=== PATIENT | female | born 1990 | race Caucasian/White ===

== ENCOUNTER 2016-05-17 10:17 | Emergency (ER) | payer MEDICAID ==
[2016-05-17 10:35] VITALS: BP 116/69
--- NOTE | 2016-05-17 11:05 | EDM.PDOC ---
ED HPI Trauma - General Chief Complaint: Lower Extremity Injury/Pain Stated Complaint: L LEG INJURY/NUMBNESS Time Seen by Provider: 05/17/16 11:05 Source: Reports: Patient History Limitations: Reports: No limitations - History of Present Illness INITIAL COMMENTS - FREE TEXT/NARRATIVE: Patient presents for evaluation and treatment of a left leg injury. Patient reports that she worked all day yesterday. She states that she got home last night around 2300 and interventions. She states that she heard a pop in her left hip and then developed pain down into her left leg. She currently reports severe numbness and tingling to the lateral aspect of her leg. She reports pain to palpation of the left hip and movement. She reports that the worst pain is to the ventral left foot. She has been able to bear weight on it. She denies any urinary incontinence, stool incontinence, urinary retention, fevers, chills , nausea or vomiting. Patient reports that she works at a [employer]. She is on her feet for often eats 2 hours a day. She states that she is responding or shift. 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) Other OB/BYN History: tubal ligation Neurological History: Reports: Migraines Psychiatric History: Reports: Anxiety, Depression - Past Surgical History HEENT Surgical History: Reports: Tonsillectomy GI Surgical History: Reports: Cholecystectomy Social & Family History - Tobacco Use Smoking Status *Q: Current Every Day Smoker Years of Tobacco use: 11 Packs/Tins Daily: 0.2 - Caffeine Use Caffeine Use: Reports: Coffee - Recreational Drug Use Recreational Drug Use: No Review of Systems - Review of Systems Review Of Systems: See Below Constitutional: Denies: chills, fever GI/Abdominal: Denies: Nausea, Vomiting Musculoskeletal: Reports: leg pain (left). Denies: back pain Neurological: Reports: numbness, tingling, difficulty walking Trauma Exam - Physical Exam Exam: See Below Exam Limited By: No limitations General Appearance: Reports: alert, WD/WN, no apparent distress Neck: Reports: non-tender, full range of motion, normal alignment, normal inspection Respiratory Exam: Reports: no respiratory distress, lungs clear, normal breath sounds Cardiovascular: Reports: normal peripheral pulses, regular rate, rhythm, no murmur Back: Reports: normal inspection. Denies: paraspinal tenderness, vertebral tenderness Extremities: Reports: no evidence of injury, pain with movement, tenderness ( left iliac crest, left greater trochanter, left lateral femur, left lateral knee , left lateral ankle and left plantar faschia) Neurologic: Reports: alert, normal mood/affect, motor weakness (body former 5/5 right and 4.5/5 left; dorsiflexion 5/5 right and 4/5 left; plantar flexion 5/5 right and 4.5/5 left ), other (negative straight leg raise right; weakness/pain to left leg with left straight leg raise) Skin: Reports: Normal color, Warm/dry Course - Vital Signs Last Recorded V/S: Last Vital Signs Temp 36.3 C 05/17/16 10:30 Pulse 74 05/17/16 10:30 Resp 12 05/17/16 10:30 BP 116/69 05/17/16 10:30 Pulse Ox 99 05/17/16 10:30 - Orders/Labs/Meds Orders: Active Orders 24 hr Category Date Time Status Hip Min 2V or 3V w Pelvis Lt [CR] Stat Exams 05/17/16 11:05 Taken Lumbar Spine 2 or 3V [CR] Stat Exams 05/17/16 11:05 Taken Meds: Medications Discontinued Medications Generic Name Dose Route Start Last Admin Trade Name Freq PRN Reason Stop Dose Admin Ketorolac Tromethamine 60 mg 05/17/16 11:06 05/17/16 11:41 Toradol IM 05/17/16 11:07 60 mg ONETIME ONE Administration - Radiology Interpretation Free Text/Narrative:: Lumbar spine xrays shows no acute fractures or dislocations Left hip and pelvis xrays hows no acute fractures or dislocations. - Re-Assessments/Exams Free Text/Narrative Re-Assessment/Exam: 05/17/16 12:14 Reviewed xrays results with the patient. Patient reports to me that she is currently being worked up for MS. She seen a neurologist and is Trevon. She states that she has had an MRI of her brain which showed lesions in her brain. She has optic neuritis which caused blurry vision to the left eye. She states she is scheduled for an MRI for cervical spine in the next few weeks. Should she have lesions on her cervical spine this would confirm a diagnosis of MS. I feel that more likely her current symptoms are from something such as MS. We discussed treatment options. I will give her some steroids and some pain medication as needed for severe pain. Discharge instructions as documented. Departure - Departure Time of Disposition: 12:14 Disposition: Home, Self-Care 01 Condition: fair Clinical Impression: Left leg pain Prescriptions: Prednisone [IJD: predniSONE] 40 mg PO WITHBREAKFAST #10 tab traMADol [Ultram] 50 mg PO Q6H PRN #12 tablet PRN Reason: Pain Instructions: Fall Prevention in the Home, [id number] Referrals: Kavita Phillip MD [Primary Care Provider] - Forms: ED Department Discharge Additional Instructions: Take the prednisone 2 tablets or 40 mg daily for 5 days. Take [id number] ibuprofen for pain relief. May take the tramadol as needed for severe pain. One tab every 4-6 hours as needed for severe pain. Do not drive or operate machinery within 12 hours of taking the tramadol. Tramadol can be habit-forming, I recommend you take as few of these as needed to control your pain. Utilize ice or moist heat to help with pain and symptom relief. If her symptoms are not better by the end of next week, Followup with primary care provider. Continue with your current plan of care with your neurologist. Please return to the ER should your symptoms change or worsen. - My Orders Last 24 Hours: My Active Orders 05/17/16 11:05 Hip Min 2V or 3V w Pelvis Lt [CR] Stat Lumbar Spine 2 or 3V [CR] Stat - Assessment/Plan Last 24 Hours: My Active Orders 05/17/16 11:05 Hip Min 2V or 3V w Pelvis Lt [CR] Stat Lumbar Spine 2 or 3V [CR] Stat
[2016-05-17] MEDS ORDERED: Ketorolac 60 MG/2 ML SDV IM ONE (11:06)
--- NOTE | 2016-05-19 07:15 | CR ---
Lumbar spine: AP and lateral views of the lumbar spine were obtained. Comparison: No previous study. Calcifications are seen off the endplates anteriorly within L4 and L5 which are felt to be incidental. Minimal endplate osteophytes are also seen within both these levels. Vertebral body heights and disc spaces are maintained. Pedicles as well as transverse and spinous processes are intact. No subluxation or fracture is seen. Incidental surgical clips are seen from prior cholecystectomy. Impression: 1. Nothing acute seen on two-view lumbar spine exam. Other incidental findings as noted above. Diagnostic code #2
--- NOTE | 2016-05-19 08:05 | CR ---
Pelvis and left hip: AP view of the pelvis was obtained as well as AP and frog leg lateral views of both hips. Comparison: No previous study. Joint spaces within both hips are maintained. Sacroiliac joints are within normal limits. No fracture or other abnormality is seen. Impression: 1. No abnormality is seen on AP pelvis or on two-view left hip exam. Diagnostic code #1
== END 2016-05-17 12:30 | disposition home or self-care (01) ==
LOC: JD.ED 10:17
DX: M79.605 Pain in left leg (principal); F17.210 Nicotine dependence, cigarettes, uncomplicated; Z91.013 Allergy to seafood; Z90.89 Acquired absence of other organs; Z98.890 Other specified postprocedural states
CPT/HCPCS: 72100; 73502; 96372; 99283; J1885

== ENCOUNTER 2016-07-15 18:55 | Emergency (ER) | payer MEDICAID ==
[2016-07-15 19:32] VITALS: BP 123/80
--- NOTE | 2016-07-15 19:39 | EDM.PDOC ---
ED HPI GENERAL MEDICAL PROBLEM - General Chief Complaint: ENT Problem Stated Complaint: POSS SWOLLEN LYMPH NODES Time Seen by Provider: 07/15/16 19:39 - History of Present Illness INITIAL COMMENTS - FREE TEXT/NARRATIVE: 26-year-old female presents emergency room with a swelling under her right jaw. This is been present for the last 3 or 4 days. Has not been associated with fevers or chills. She's been thinking it's an enlarged lymph node. Patient denies any upper respiratory tract symptoms sore throat allergic rhinitis or other symptoms. 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 Denies: fever, chills HEENT: Reports: No symptoms Respiratory: Reports: No Symptoms Cardiovascular: Reports: No symptoms GI/Abdominal: Reports: No symptoms ED EXAM, ENT - Physical Exam Exam: See Below General Appearance: alert, no apparent distress Eye Exam: bilateral eye: normal inspection Ears: normal external exam, normal canal, hearing grossly normal, normal TMs Nose: normal inspection, normal mucousa, no blood Mouth/Throat: Normal inspection, Normal gums, Normal lips, Normal oropharynx, Normal teeth Head: atraumatic, normocephalic Neck: lymphadenopathy (R) (She has a massive follows the inner aspect of her lower jaw on the right feels more like an enlarged submandibular gland) Respiratory/Chest: no respiratory distress, lungs clear, normal breath sounds Cardiovascular: regular rate, rhythm, no edema, no murmur Course - Vital Signs Last Recorded V/S: Last Vital Signs Temp 36.6 C 07/15/16 19:29 Pulse 69 07/15/16 19:29 Resp 20 07/15/16 19:29 BP 123/80 07/15/16 19:29 Pulse Ox 98 07/15/16 19:29 - Re-Assessments/Exams Free Text/Narrative Re-Assessment/Exam: 07/15/16 19:58 It is possible that this is a lymph node albeit elongated shape in the location of the submandibular gland. I think more probable it's an inflamed submandibular gland. We'll start a week's worth of cephalexin 500 mg 4 times a day with close followup in the clinic. Departure - Departure Time of Disposition: 19:53 Disposition: Home, Self-Care 01 Clinical Impression: Sialadenitis - Discharge Information Prescriptions: Cephalexin [Keflex] 500 mg PO Q6HR #28 cap Referrals: PCP,Unknown [Primary Care Provider] - Forms: ED Department Discharge Additional Instructions: Return to emergency room if any questions or problems. Followup with Dr. Sloan next week. You have been started on any antibiotic, Keflex, take this 4 times daily until gone.
== END 2016-07-15 20:05 | disposition home or self-care (01) ==
LOC: JD.ED 18:55
DX: K11.20 Sialoadenitis, unspecified (principal); F41.8 Other specified anxiety disorders; F17.210 Nicotine dependence, cigarettes, uncomplicated; Z90.49 Acquired absence of other specified parts of digestive tract; Z98.890 Other specified postprocedural states; Z91.013 Allergy to seafood
CPT/HCPCS: 99283

== ENCOUNTER 2016-12-31 20:51 | Emergency (ER) | payer OTHER, MEDICAID ==
[2016-12-31 21:09] VITALS: BP 126/92
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
== END 2016-12-31 21:50 | disposition home or self-care (01) ==
LOC: JD.ED 20:51 → MERGE 20:51 → JD.ED 21:50
DX: T52.0X1A Toxic effect of petroleum products, accidental (unintentional), initial encounter (principal); Y92.524 Gas station as the place of occurrence of the external cause; Y99.0 Civilian activity done for income or pay; R10.13 Epigastric pain; Z91.013 Allergy to seafood
CPT/HCPCS: 99283

== ENCOUNTER 2017-04-05 11:23 | Emergency (ER) | payer MEDICAID, OTHER ==
[2017-04-05 11:53] VITALS: BP 122/77
--- NOTE | 2017-04-05 13:02 | EDM.PDOC ---
ED HPI GENERAL MEDICAL PROBLEM - General Chief Complaint: Respiratory Problem Stated Complaint: EXPOSED TO FLU Time Seen by Provider: 04/05/17 11:28 Source of Information: Reports: Patient, RN Notes Reviewed - History of Present Illness INITIAL COMMENTS - FREE TEXT/NARRATIVE: 27 year old female with onset of cough, nakul., sore throat, chills, Valenzuela, myalgias today. Strong exposure for the last 3 days to 7 year old girl living with her and her family diagnosed with influenza this morning having been ill with typical sx for the past few days. Hx of MS. 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) Other OB/BYN History: tubal ligation Musculoskeletal History: Reports: Other (See Below) Neurological History: Reports: Migraines, MS Psychiatric History: Reports: Anxiety, Depression - Infectious Disease History Infectious Disease History: Reports: Hepatitis C Other Infectious Disease History: pt has had the treatment for Hep c - Past Surgical History GI Surgical History: Reports: Cholecystectomy Female Surgical History: Reports: Tubal Ligation Social & Family History - Tobacco Use Smoking Status *Q: Current Every Day Smoker Years of Tobacco use: 12 Packs/Tins Daily: 0.5 - Caffeine Use Caffeine Use: Reports: Coffee - Recreational Drug Use Recreational Drug Use: No - Living Situation & Occupation Living situation: Reports: Single Occupation: Employed ED ROS GENERAL - Review of Systems Review Of Systems: See Below Constitutional: Reports: Chills, Malaise, Fatigue. Denies: Fever HEENT: Reports: Rhinitis, Throat Pain Respiratory: Reports: Cough. Denies: Shortness of Breath, Wheezing, Pleuritic Chest Pain Cardiovascular: Denies: Chest Pain GI/Abdominal: Denies: Abdominal Pain, Nausea, Vomiting Musculoskeletal: Reports: Other (generalized myalgias) Skin: Denies: Rash Neurological: Reports: Headache ED EXAM, GENERAL - Physical Exam Exam: See Below General Appearance: Alert, Mild Distress Eye Exam: Bilateral Eye: PERRL Nose: Normal Inspection Throat/Mouth: Normal Inspection, Normal Oropharynx Head: Atraumatic. No: Facial Swelling Neck: Supple, Full Range of Motion Respiratory/Chest: No Respiratory Distress, Lungs Clear, Normal Breath Sounds. No: Rhonchi, Wheezing Cardiovascular: Regular Rate, Rhythm Extremities: Normal Inspection, Normal Range of Motion Neurological: Alert, Oriented, No Motor/Sensory Deficits Skin Exam: Warm, Dry, Normal Color Course - Vital Signs Last Recorded V/S: Last Vital Signs Temp 97.6 F 04/05/17 11:52 Pulse 69 04/05/17 11:52 Resp 20 04/05/17 11:52 BP 122/77 04/05/17 11:52 Pulse Ox 97 04/05/17 11:52 - Re-Assessments/Exams Free Text/Narrative Re-Assessment/Exam: 04/05/17 13:24 will start on tamiflu bid due to very strong exposure and new onset sx typical for influenza. Departure - Departure Time of Disposition: 12:58 Disposition: Home, Self-Care 01 Clinical Impression: Influenza - Discharge Information Prescriptions: Oseltamivir [Tamiflu] 75 mg PO BID #10 cap Instructions: Influenza, Adult, [id number] Referrals: Kavita Phillip MD [Primary Care Provider] - Forms: ED Department Discharge, ED Return to Work/School Form Additional Instructions: rest, vaporizer or steam as needed, vitamin C or multivit. recomended. Alternate tylenol and ibuprofen as needed. Follow up clinic if not much better within 4 to 5 days, return to ED as needed.
== END 2017-04-05 13:15 | disposition home or self-care (01) ==
LOC: JD.ED 11:23
DX: J11.1 Influenza due to unidentified influenza virus with other respiratory manifestations (principal); F17.210 Nicotine dependence, cigarettes, uncomplicated; Z91.013 Allergy to seafood
CPT/HCPCS: 87804; 99283

== ENCOUNTER 2017-09-06 09:34 | Emergency (ER) | payer MEDICAID ==
--- NOTE | 2017-09-06 10:02 | EDM.PDOC ---
ED HPI GENERAL MEDICAL PROBLEM - General Chief Complaint: Abdominal Pain Stated Complaint: ABDOMINAL PAIN AND LEGS PAIN Time Seen by Provider: 09/06/17 10:01 Source of Information: Reports: Patient History Limitations: Reports: No Limitations - History of Present Illness INITIAL COMMENTS - FREE TEXT/NARRATIVE: 27-year-old female presents to the ED with a 3 day history of diffuse lower abdominal pain. She states it present is mostly right-sided and radiates up into her right flank. She gives no history of dysuria urgency or frequency earlier in the week. She's had fever and chills to the point of riders at nighttime for the last 3 nights. Very poor oral intake the last 3 days. She states bowels are still formed up and normal. Having a bowel movement makes the pain worse. She's had previous fallopian tubes resected she does not believe she could be . She's had her gallbladder removed in the past. Denies cough or sputum production. He states it does hurt to walk. Hurts to cough or deep breathe as well. Current temperature is 102.3. She is writhing on the bed as if she is having renal colic. Onset: Gradual Onset Date: 09/03/17 Duration: Day(s): (Symptoms started 3 days ago with fever and chills.), Getting Worse ( It sided abdominal pain which is gradually worsened over that timeframe. ) Location: Reports: Abdomen Quality: Reports: Ache (Right hemiabdomen radiating to the right flank and lower back.), Other (Describes the pain is constant with no colicky component.) Severity: Severe (Pain is 8 out of 10.) Improves with: Reports: Rest Worsens with: Reports: Movement Context: Denies: Activity (Any movement deep breathing coughing makes the pain worse.), Exercise, Lifting, Sick Contact, Trauma, Other Associated Symptoms: Reports: Diaphoresis (With rigors the last 3 nights), Fever /Chills, Loss of Appetite, Malaise, Nausea/Vomiting ( diaphoresis associate with the fevers during the night.). 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: Reports: Other (see below) (None.) Lower Abdominal Pain Score (Numeric/FACES): 10 - Related Data Allergies Allergy/AdvReac Type Severity Reaction Status Date / Time shellfish derived Allergy Airway Verified 09/06/17 10:01 Tightness Home Meds: Home Meds Interferon Beta-1a [Avonex] 1 applic INJECT WEEKLY 04/05/17 [History] Levofloxacin [Levaquin] 500 mg PO DAILY #9 tab 09/06/17 [Rx] Past Medical History HEENT History: Reports: Impaired Vision, Other (See Below) Other HEENT History: 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 Gastrointestinal History: Reports: Cholelithiasis 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 (See Below) Other ROLL SLICING MACHINE TENDER History: tubal ligation Musculoskeletal History: Reports: Other (See Below) Other Musculoskeletal History: MS Neurological History: Reports: Migraines, MS Psychiatric History: Reports: Anxiety, Depression - Infectious Disease History Infectious Disease History: Reports: Hepatitis C Other Infectious Disease History: pt has had the treatment for Hep c - Past Surgical History GI Surgical History: Reports: Cholecystectomy Female Surgical History: Reports: Tubal Ligation Social & Family History - Tobacco Use Smoking Status *Q: Current Every Day Smoker Years of Tobacco use: 10 Packs/Tins Daily: 0.5 - Caffeine Use Caffeine Use: Reports: Energy Drinks - Recreational Drug Use Recreational Drug Use: No - Living Situation & Occupation Living situation: Reports: Single Occupation: Employed ED ROS GENERAL - Review of Systems Review Of Systems: See Below Constitutional: Reports: Fever, Chills, Malaise, Weakness, Fatigue, Decreased Appetite, Weight Loss HEENT: Reports: No Symptoms Respiratory: Reports: No Symptoms Cardiovascular: Reports: No Symptoms Endocrine: Reports: No Symptoms GI/Abdominal: Reports: Abdominal Pain, Decreased Appetite, Nausea. Denies: Constipation (See history of present illness), Diarrhea, Difficulty Swallowing, Distension, Flatus, Hematemesis, Melena, Mucous in Stool, Stool Incontinence, Vomiting : Denies: Dysuria, Frequency, Urgency Musculoskeletal: Reports: Back Pain (Diffuse back pain mostly in the flank low at) Skin: Reports: No Symptoms Neurological: Reports: No Symptoms Psychiatric: Reports: No Symptoms Hematologic/Lymphatic: Reports: No Symptoms Immunologic: Reports: No Symptoms ED EXAM, GI/ABD - Physical Exam Exam: See Below Exam Limited By: No Limitations General Appearance: Alert, WD/WN, Moderate Distress Eyes: Bilateral: Normal Appearance Throat/Mouth: Normal Inspection, Normal Lips, Normal Teeth, Normal Oropharynx Head: Atraumatic, Normocephalic Neck: Normal Inspection, Supple, Non-Tender, Full Range of Motion. No: Lymphadenopathy (L), Lymphadenopathy (R) Respiratory/Chest: No Respiratory Distress, Lungs Clear, Normal Breath Sounds, No Accessory Muscle Use Cardiovascular: Normal Peripheral Pulses, Regular Rate, Rhythm, No Edema, No Gallop, No Murmur, Tachycardia GI/Abdominal Exam: Guarding ( Could not spread particularly say that McBurney's point was a source of peritonitis. Deep pressure or palpation did cause some mild rebound. amiodarone superiorly. ), Tender (Tenderness with guarding right hemiabdomen particularly at lateral to the umbilicus and superiorly.), Abnormal Bowel Sounds (Bowel sounds are very few and far between.) Back Exam: Normal Inspection, Full Range of Motion, CVA Tenderness (R). No: CVA Tenderness (L), Decreased Range of Motion (Mild), Muscle Spasm Extremities: Normal Inspection, Normal Range of Motion, Non-Tender, No Pedal Edema Neurological: Alert, Oriented, CN II-XII Intact, Normal Cognition, Normal Gait Psychiatric: Other. No: Normal Mood (Appears ill.) Skin Exam: Warm, Dry, Intact, Normal Color, No Rash (Does feel quite warm to palpation) Course - Vital Signs Last Recorded V/S: Last Vital Signs Temp 37.2 C 09/06/17 16:15 Pulse 105 H 09/06/17 16:15 Resp 16 09/06/17 16:15 BP 106/58 L 09/06/17 16:15 Pulse Ox 100 09/06/17 16:15 - Orders/Labs/Meds Orders: Active Orders 24 hr Category Date Time Status Abdomen 1V Flat [CR] Stat Exams 09/06/17 10:07 Taken Abdomen Pelvis w Cont [CT] Stat Exams 09/06/17 11:30 Taken Chest 1V Frontal [CR] Stat Exams 09/06/17 10:07 Taken CULTURE BLOOD [BC] Stat Lab 09/06/17 10:36 Received CULTURE BLOOD [BC] Stat Lab 09/06/17 10:44 Received CULTURE URINE [RM] Stat Lab 09/06/17 13:50 Received UA W/MICROSCOPIC [URIN] Stat Lab 09/06/17 13:50 Ordered Dextrose 5%-0.9% NaCl [Dextrose 5%-Normal Saline] 1,000 Med 09/06/17 10:15 Active ml IV ASDIRECTED Dextrose 5%-0.9% NaCl [Dextrose 5%-Normal Saline] 1,000 Med 09/06/17 12:00 Active ml IV ASDIRECTED Ketorolac [Toradol] Med 09/06/17 14:30 Active 30 mg IVPUSH ONETIME Blood Culture x2 Reflex Set [OM.PC] Stat Oth 09/06/17 10:08 Ordered Medication Orders Dextrose/Sodium Chloride (Dextrose 5%-Normal Saline) 1,000 mls @ 999 mls/hr IV ASDIRECTED NANCY Last Infusion: 09/06/17 11:15 Dose: 999 mls/hr Admin: 09/06/17 10:14 Dose: 999 mls/hr Dextrose/Sodium Chloride (Dextrose 5%-Normal Saline) 1,000 mls @ 999 mls/hr IV ASDIRECTED NANCY Last Admin: 09/06/17 12:03 Dose: 999 mls/hr Ketorolac Tromethamine (Toradol) 30 mg IVPUSH ONETIME NANCY Last Admin: 09/06/17 14:40 Dose: 30 mg Labs: Laboratory Tests 09/06/17 09/06/17 09/06/17 Range/Units 10:36 10:36 10:36 WBC 8.01 (3.98-10.04) K/mm3 RBC 4.00 (3.98-5.22) M/mm3 Hgb 11.9 (11.2-15.7) gm/L Hct 35.8 (34.1-44.9) % MCV 89.5 (79.4-94.8) fl MCH 29.8 (25.6-32.2) pg MCHC 33.2 (32.2-35.5) g/dl RDW Std Deviation 41.9 (36.4-46.3) fL Plt Count 182 (182-369) K/mm3 MPV 10.3 (9.4-12.3) fl Neutrophils % (Manual) 75 H (40-60) % Band Neutrophils % 0 (0-10) % Lymphocytes % (Manual) 15 L (20-40) % Monocytes % (Manual) 9 (2-10) % Eosinophils % (Manual) 1 (0.7-5.8) % Basophils % (Manual) 0 L (0.1-1.2) Platelet Estimate Adequate RBC Morph Comment Normal Sodium 136 (136-145) mEq/L Potassium 3.4 L (3.5-5.1) mEq/L Chloride 103 (98-107) mEq/L Carbon Dioxide 25 (21-32) mEq/L Anion Gap 11.4 (5-15) BUN 12 (7-18) mg/dL Creatinine 1.0 (0.55-1.02) mg/dL Est Cr Clr Drug Dosing 72.32 mL/min Estimated GFR (MDRD) > 60 (>60) mL/min BUN/Creatinine Ratio 12.0 L (14-18) Glucose 148 H (74-106) mg/dL Calcium 8.2 L (8.5-10.1) mg/dL Total Bilirubin 0.3 (0.2-1.0) mg/dL AST 13 L (15-37) U/L ALT 18 (14-59) U/L Alkaline Phosphatase 66 (46-116) U/L C-Reactive Protein 23.1 H* (<1.0) mg/dL Total Protein 6.6 (6.4-8.2) g/dl Albumin 2.8 L (3.4-5.0) g/dl Globulin 3.8 gm/dL Albumin/Globulin Ratio 0.7 L (1-2) Lipase (73-393) U/L HCG, Qual Negative (NEGATIVE) Urine Color (Yellow) Urine Appearance (Clear) Urine pH (5.0-8.0) Ur Specific [place] (1.005-1.030) Urine Protein (Negative) Urine Glucose (UA) (Negative) Urine Ketones (Negative) Urine Occult Blood (Negative) Urine Nitrite (Negative) Urine Bilirubin (Negative) Urine Urobilinogen (0.2-1.0) Ur Leukocyte Esterase (Negative) Urine RBC (0-5) /hpf Urine WBC (0-5) /hpf Ur Epithelial Cells (0-5) /hpf Urine Bacteria (FEW) /hpf Urine Mucus (FEW) /hpf 09/06/17 09/06/17 Range/Units 10:36 13:50 WBC (3.98-10.04) K/mm3 RBC (3.98-5.22) M/mm3 Hgb (11.2-15.7) gm/L Hct (34.1-44.9) % MCV (79.4-94.8) fl MCH (25.6-32.2) pg MCHC (32.2-35.5) g/dl RDW Std Deviation (36.4-46.3) fL Plt Count (182-369) K/mm3 MPV (9.4-12.3) fl Neutrophils % (Manual) (40-60) % Band Neutrophils % (0-10) % Lymphocytes % (Manual) (20-40) % Monocytes % (Manual) (2-10) % Eosinophils % (Manual) (0.7-5.8) % Basophils % (Manual) (0.1-1.2) Platelet Estimate RBC Morph Comment Sodium (136-145) mEq/L Potassium (3.5-5.1) mEq/L Chloride (98-107) mEq/L Carbon Dioxide (21-32) mEq/L Anion Gap (5-15) BUN (7-18) mg/dL Creatinine (0.55-1.02) mg/dL Est Cr Clr Drug Dosing mL/min Estimated GFR (MDRD) (>60) mL/min BUN/Creatinine Ratio (14-18) Glucose (74-106) mg/dL Calcium (8.5-10.1) mg/dL Total Bilirubin (0.2-1.0) mg/dL AST (15-37) U/L ALT (14-59) U/L Alkaline Phosphatase (46-116) U/L C-Reactive Protein (<1.0) mg/dL Total Protein (6.4-8.2) g/dl Albumin (3.4-5.0) g/dl Globulin gm/dL Albumin/Globulin Ratio (1-2) Lipase 81 (73-393) U/L HCG, Qual (NEGATIVE) Urine Color Yellow (Yellow) Urine Appearance Cloudy H (Clear) Urine pH 6.0 (5.0-8.0) Ur Specific [place] 1.010 (1.005-1.030) Urine Protein 1+ H (Negative) Urine Glucose (UA) Negative (Negative) Urine Ketones Negative (Negative) Urine Occult Blood 1+ H (Negative) Urine Nitrite Positive H (Negative) Urine Bilirubin Negative (Negative) Urine Urobilinogen 0.2 (0.2-1.0) Ur Leukocyte Esterase 2+ H (Negative) Urine RBC 5-10 H (0-5) /hpf Urine WBC 50-75 H (0-5) /hpf Ur Epithelial Cells 5-10 H (0-5) /hpf Urine Bacteria Many H (FEW) /hpf Urine Mucus Few (FEW) /hpf Meds: Medications Generic Name Dose Route Start Last Admin Trade Name Vikas PRN Reason Stop Dose Admin Dextrose/Sodium Chloride 1,000 mls @ 999 mls/hr 09/06/17 10:15 09/06/17 11:15 Dextrose 5%-Normal Saline IV Infused ASDIRECTED NANCY Infusion Dextrose/Sodium Chloride 1,000 mls @ 999 mls/hr 09/06/17 12:00 09/06/17 12:03 Dextrose 5%-Normal Saline IV 999 mls/hr ASDIRECTED NANCY Administration Ketorolac Tromethamine 30 mg 09/06/17 14:30 09/06/17 14:40 Toradol IVPUSH 30 mg ONETIME NANCY Administration Discontinued Medications Generic Name Dose Route Start Last Admin Trade Name Vikas PRN Reason Stop Dose Admin Acetaminophen 975 mg 09/06/17 10:12 09/06/17 10:24 Tylenol PO 09/06/17 10:13 975 mg NOW ONE Administration Diatrizoate Meglum/Diatrizoate Sod 90 ml 09/06/17 13:03 09/06/17 13:18 Gastrografin 37% PO 09/06/17 13:04 90 ml ONETIME ONE Administration Hydromorphone HCl 1 mg 09/06/17 10:08 09/06/17 10:21 Dilaudid IVPUSH 09/06/17 10:09 1 mg ONETIME ONE Administration Hydromorphone HCl 0.5 mg 09/06/17 11:29 09/06/17 11:49 Dilaudid IVPUSH 09/06/17 11:30 0.5 mg ONETIME ONE Administration Hydromorphone HCl 0.5 mg 09/06/17 13:31 09/06/17 13:43 Dilaudid IVPUSH 09/06/17 13:32 0.5 mg ONETIME ONE Administration Ceftriaxone Sodium 2 gm/ 100 mls @ 100 mls/hr 09/06/17 14:30 09/06/17 14:44 Sodium Chloride IV 09/06/17 15:29 100 mls/hr ONETIME ONE Administration Iopamidol 100 ml 09/06/17 13:03 09/06/17 13:18 Isovue-300 (61%) IVPUSH 09/06/17 13:04 100 ml ONETIME ONE Administration Levofloxacin 500 mg 09/06/17 16:00 09/06/17 16:15 Levaquin PO 09/06/17 16:01 500 mg ONETIME ONE Administration Metoclopramide HCl 7.5 mg 09/06/17 10:20 09/06/17 10:27 Reglan IVPUSH 09/06/17 10:21 7.5 mg ONETIME ONE Administration Sodium Chloride 10 ml 09/06/17 13:03 09/06/17 13:18 Saline Flush FLUSH 09/06/17 13:04 10 ml ONETIME ONE Administration - Radiology Interpretation Free Text/Narrative:: 27-year-old female presents to the ED with a history of fever chills 3 days. Diffuse right mckenzie-abdominal pain rating up towards her right flank. She is writhing on the bed and acting like renal colic. She would have to associated pyelonephritis to cause this type of fever. Temperatures 102.3 by nurses recording. She is guarding on the right side. Therefore appendicitis remains in the differential diagnosis. She has had a previous cholecystectomy he denies any dysuria urgency or frequency. Bowel function is normal. She's had both both fallopian tubes removed in the past. Plan IV D5 normal saline at open. Dilaudid 1 mg IV with Reglan 7.5 mg IV for pain relief. In 15 minutes or so after the Reglan is been administered will give her Tylenol 975 mg with a sip of water. Plan will be initial lab work urinalysis when one becomes available one view of the abdomen. Will likely require CT of the abdomen. - Re-Assessments/Exams Free Text/Narrative Re-Assessment/Exam: 09/06/17 11:21 KUB reveals increased stool throughout the transverse colon but no signs of any bowel obstruction. 09/06/17 11:31 patient reports her pain is coming back after the x-ray was completed. I will give her another 0.5 mg of Dilaudid IV. She believes she keep down oral contrast therefore will start oral contrast in preparation for CT the abdomen and pelvis with oral and IV contrast. 09/06/17 11:55 nurses report temperature is going up it's currently 103. CRP is returned elevated at 23.1. 09/06/17 13:32 patient's pain is coming back after CT has been completed. Will repeat Dilaudid 0.[address] reveals no hydronephrosis. The right ureter appears to be mildly dilated all the way down to the urinary bladder but there is no obstruction or stone within the ureter. No stones within either kidney tissue appreciated. There appears to be evidence of periappendiceal infiltrate compatible with appendicitis. The right ovary is easily visualized and appears to be intact and normal with a full single cyst. I cannot visualize the left ovary. There is no free fluid in the pelvis. 09/06/17 14:31 CT of the abdomen is reported as suspicious for right pyelonephritis due to a heterogenous right nephrogram. The right ureter is also mildly dilated without any sign of obstruction. Appendix is felt to be seen and is normal. Plan Toradol 30 g IV for further pain relief. Will be given Rocephin 2 g IV for UTI. Departure - Departure Time of Disposition: 16:00 Disposition: Home, Self-Care 01 Condition: Fair Clinical Impression: Pyelonephritis - Discharge Information Prescriptions: Levofloxacin [Levaquin] 500 mg PO DAILY #9 tab Instructions: Pyelonephritis, Adult, [id number] Referrals: PCP,None [Primary Care Provider] - Forms: ED Department Discharge, ED Return to Work/School Form Additional Instructions: Evaluation the emergency room today in regards to onset of high fever with associated chills 3 days. Diffuse right-sided abdominal pain mostly upper and lateral to the umbilicus her bellybutton. Fencing evidence of appendicitis October this remained in the differential diagnosis. Callus found to be within normal limits however markers for infection were found to be markedly elevated with CRP of 23.1 with normal being 1. Urinalysis finally prove the diagnosis as there is significant infection in the urine. CT the abdomen also confirmed evidence of right-sided kidney infection or pyelonephritis. He received intravenous fluids to rehydrate you. He received pain medications and Toradol and Tylenol for fever and pain relief. Treatment at home is Motrin 600 mg every 6 hours as needed for fever and/or pain relief. Initial dose of antibiotic was started in the ED with Rocephin 2 g given intravenously and first course of oral Levaquin 500 mg by mouth at the time of discharge. He will need to take Levaquin once daily 500 mg for another 9 days starting tomorrow at suppertime. Expect marked improvement over the next 48-72 hours. Note given to excuse her from work for the next 3 days including today. May also use Tylenol 650 mg every 4 hours if needed for fever relief. Return to the ED if vomiting occurs in your not able to keep down her medications. - My Orders Last 24 Hours: My Active Orders 09/06/17 10:07 Abdomen 1V Flat [CR] Stat Chest 1V Frontal [CR] Stat 09/06/17 10:08 Blood Culture x2 Reflex Set [OM.PC] Stat 09/06/17 10:15 Dextrose 5%-0.9% NaCl [Dextrose 5%-Normal Saline] 1,000 ml IV ASDIRECTED 09/06/17 10:36 CULTURE BLOOD [BC] Stat 09/06/17 10:44 CULTURE BLOOD [BC] Stat 09/06/17 11:30 Abdomen Pelvis w Cont [CT] Stat 09/06/17 12:00 Dextrose 5%-0.9% NaCl [Dextrose 5%-Normal Saline] 1,000 ml IV ASDIRECTED 09/06/17 13:50 CULTURE URINE [RM] Stat UA W/MICROSCOPIC [URIN] Stat 09/06/17 14:30 Ketorolac [Toradol] 30 mg IVPUSH ONETIME - Assessment/Plan Last 24 Hours: My Active Orders 09/06/17 10:07 Abdomen 1V Flat [CR] Stat Chest 1V Frontal [CR] Stat 09/06/17 10:08 Blood Culture x2 Reflex Set [OM.PC] Stat 09/06/17 10:15 Dextrose 5%-0.9% NaCl [Dextrose 5%-Normal Saline] 1,000 ml IV ASDIRECTED 09/06/17 10:36 CULTURE BLOOD [BC] Stat 09/06/17 10:44 CULTURE BLOOD [BC] Stat 09/06/17 11:30 Abdomen Pelvis w Cont [CT] Stat 09/06/17 12:00 Dextrose 5%-0.9% NaCl [Dextrose 5%-Normal Saline] 1,000 ml IV ASDIRECTED 09/06/17 13:50 CULTURE URINE [RM] Stat UA W/MICROSCOPIC [URIN] Stat 09/06/17 14:30 Ketorolac [Toradol] 30 mg IVPUSH ONETIME
[2017-09-06] MEDS ORDERED: HYDROmorphone 0.5 MG/0.5 ML SYRINGE IVPUSH ONE ×3 (10:08→13:31)
[2017-09-06] MEDS ORDERED: Acetaminophen 325 MG Tab PO ONE (10:12)
[2017-09-06] MEDS: Dextrose 5%-0.9% NaCl 1,000 ML IV SCH ×2 (10:14→12:03)
[2017-09-06] MEDS ORDERED: Metoclopramide 10 MG/2 ML SDV IVPUSH ONE (10:20)
[2017-09-06] MEDS ORDERED: Dextrose 5%-0.9% NaCl 1,000 ML IV SCH (12:00)
[2017-09-06] MEDS ORDERED: Diatrizoate Meglumine/Diatrizoate Sodium 37% 120 ML Bottle PO ONE (13:03)
[2017-09-06] MEDS ORDERED: Sodium Chloride 0.9% 10 ML Syringe FLUSH ONE (13:03)
[2017-09-06] MEDS ORDERED: Iopamidol 612 MG/ML 100 ML Bottle IVPUSH ONE (13:03)
[2017-09-06] MEDS ORDERED: Ketorolac 30 MG/ML SDV IVPUSH SCH (14:30)
[2017-09-06] MEDS ORDERED: cefTRIAXone 2 GM in Sodium Chloride 0.9% 100 ML IV ONE (14:30)
[2017-09-06] MEDS ORDERED: Levofloxacin 250 MG Tab PO ONE (16:00)
[2017-09-06 16:18] VITALS: BP 106/58
--- NOTE | 2017-09-07 07:27 | CT ---
CT abdomen and pelvis Technique: Multiple axial sections were obtained from above the dome of the diaphragm inferiorly through the pubic symphysis. Intravenous and oral contrast was utilized. Delayed images were also obtained through the bladder. Comparison: No prior CT exam. Findings: Slight areas of diminished perfusion are seen within portions of the right kidney. This finding is suspicious for pyelonephritis. No hydronephrosis or mass is seen within either kidney. Ureters show no dilatation. Visualized lung bases show nothing acute. Liver shows no focal parenchymal abnormality. Spleen appears within normal limits. Surgical clips are seen from prior cholecystectomy. Adrenal glands are unremarkable. Pancreas appears normal. Aorta shows no aneurysmal dilatation. No retroperitoneal adenopathy or mesenteric abnormalities are seen. Appendix is seen which is normal in size. Physiologic cyst is noted within the right ovary. No pelvic mass or adenopathy is seen. Delayed images show contrast within the distal ureters and within the bladder. Bone window settings were reviewed which show limbus type vertebra as an incidental note off the superior and anterior endplate of L4 and L5 as well as off the inferior and anterior endplate of L5. Impression: 1. Findings suspicious for pyelonephritis within the right kidney. 2. Other incidental findings as noted above. Diagnostic code #3 I agree with preliminary report from [facility], finalized at 09/06/17, 3:27 PM Central Time
--- NOTE | 2017-09-07 07:27 | CR ---
Abdomen: Supine view of the abdomen was obtained. Comparison: No prior abdominal imaging. Bowel gas pattern appears within normal limits. No abnormal calcifications or soft tissue abnormality is identified. Surgical clips are seen from prior cholecystectomy. Bony structures are within normal limits. Impression: 1. Nothing acute is seen. Diagnostic code #2
--- NOTE | 2017-09-07 07:27 | CR ---
Chest: Frontal view of the chest was obtained. Comparison: No prior chest x-ray. Heart size and mediastinum are normal. Lungs are clear. Bony structures are intact. Impression: 1. Nothing acute is seen on frontal chest x-ray. Diagnostic code #1
== END 2017-09-06 16:30 | disposition home or self-care (01) ==
LOC: JD.ED 09:34
DX: N12 Tubulo-interstitial nephritis, not specified as acute or chronic (principal); F17.210 Nicotine dependence, cigarettes, uncomplicated; Z91.013 Allergy to seafood
CPT/HCPCS: 36415; 71045; 74018; 74177; 80053; 81001; 83690; 84703; 85007; 85027; 86140; 87040; 87086; 96361; 96365; 96375; 96376; 99285; A9270; J0696; J1170; J1885; J2765; J7030; J7042; J7050; Q9963; Q9967; 87088; 87186

== ENCOUNTER 2017-10-27 19:16 | Emergency (ER) | payer MEDICAID ==
[2017-10-27 19:25] VITALS: BP 133/95
--- NOTE | 2017-10-27 19:44 | EDM.PDOC ---
ED HPI GENERAL MEDICAL PROBLEM - General Chief Complaint: General Stated Complaint: MEDICAL CLEARANCE FOR [facility] Time Seen by Provider: 10/27/17 19:26 Source of Information: Reports: Patient History Limitations: Reports: No Limitations - History of Present Illness INITIAL COMMENTS - FREE TEXT/NARRATIVE: The patient states that she is here for medical clearance to go to [facility]. She states that she has a history of methamphetamine abuse, currently in day treatment with [facility] at [facility], and that she does not want to relapse. She states that she last smoked methamphetamine on 10/09/2017. She states that she typically smokes 1 g per week. She denies any other recreational drugs, other than trying marijuana in high school, and a single injection of heroin when she was 20 years old. She states that she quit drinking alcohol in 2015, but only occasionally drank to excess. Medical records from this ED from 10/16/2017 tells a similar, but slightly different story. At that ED visit, she indicated that her last methamphetamine use was on 10/12/2017, and that she ordinarily smokes half a gram a day = 3.5 g per week. The patient has no prior history of inpatient drug treatment, no hospitalization secondary to drug use, and no legal consequences of drug use. Similarly, the patient has no medical or legal issues with alcohol. The patient states that she has a history of anxiety and depression, currently being treated with Cymbalta and Klonopin, and that she has been feeling depressed for the past 2 months, worst since she quit methamphetamine earlier this month, however, she states that she does not feel suicidal. She has 1 prior suicide attempt by pill overdose at 16 years of age. She did not require psychiatric hospitalization at the time, and states that she has never been psychiatrically hospitalized. No recent illnesses. The patient states that she has a history of MS, ordinarily treated with weekly injectable Avonex, however, she states that she has allowed her prescription to relapse, and last took it about one month ago. The patient's PCP is Aure Cochran. The patient's Neurologist is Dr. Pino, in [place]. - Related Data Allergies Allergy/AdvReac Type Severity Reaction Status Date / Time shellfish derived Allergy Airway Verified 10/27/17 19:25 Tightness Home Meds: Home Meds ClonazePAM [KlonoPIN] 0.5 mg PO BID PRN 10/16/17 [History] DULoxetine [Cymbalta] 120 mg PO DAILY 10/16/17 [History] Past Medical History HEENT History: Reports: Impaired Vision (left eye) Neurological History: Reports: MS Psychiatric History: Reports: Addiction (methamphetamine), Anxiety, Depression - Infectious Disease History Infectious Disease History: Reports: Hepatitis C (treated) - Past Surgical History HEENT Surgical History: Reports: Tonsillectomy GI Surgical History: Reports: Cholecystectomy Female Surgical History: Reports: Tubal Ligation Social & Family History - Family History Family Medical History: Noncontributory - Tobacco Use Smoking Status *Q: Current Every Day Smoker Years of Tobacco use: 12 Packs/Tins Daily: 0.5 Packs/Tins Daily Comment: Down from 1.5 ppd - Caffeine Use Caffeine Use: Reports: Coffee, Energy Drinks, Soda, Tea - Alcohol Use Alcohol Use History: Yes Date/Time of Last Drink Comment: Quit drinking 2015, prior occasional excess - Recreational Drug Use Recreational Drug Use: Yes Drug Use in Last 12 Months: Yes Recreational Drug Type: Reports: Heroin (Injected once at 16 years old), Marijuana/Hashish (Last smoked in HS), Methamphetamine (last smoked 10/09/2017) - Living Situation & Occupation Living situation: Reports: Single, with Significant Other (Fiance), with Family (2 kids) Occupation: Unemployed ED ROS GENERAL - Review of Systems Review Of Systems: ROS reveals no pertinent complaints other than HPI. ED EXAM, GENERAL - Physical Exam Exam: See Below Exam Limited By: No Limitations General Appearance: Alert, WD/WN, No Apparent Distress Eye Exam: Bilateral Eye: EOMI, Normal Inspection Ears: Normal External Exam, Hearing Grossly Normal Nose: Normal Inspection, No Blood Throat/Mouth: Normal Inspection, Normal Lips, Normal Voice, No Airway Compromise Head: Atraumatic, Normocephalic Neck: Normal Inspection, Full Range of Motion Respiratory/Chest: No Respiratory Distress, Lungs Clear, Normal Breath Sounds, No Accessory Muscle Use Cardiovascular: Normal Peripheral Pulses, Regular Rate, Rhythm, No Gallop, No JVD, No Murmur, No Rub Peripheral Pulses: 4+: Radial (L), Radial (R) GI/Abdominal: Normal Bowel Sounds, Soft, Non-Tender, No Organomegaly, No Distention, No Abnormal Bruit, No Mass, Other (Obese) (Female) Exam: Deferred Rectal (Female) Exam: Deferred Back Exam: Normal Inspection, Full Range of Motion, NT Extremities: Normal Inspection, Normal Range of Motion, No Pedal Edema, Normal Capillary Refill Neurological: Alert, Oriented, Normal Cognition, No Motor/Sensory Deficits Psychiatric: Normal Affect Skin Exam: Warm, Dry, Intact, Normal Color, No Rash EKG INTERPRETATION EKG Date: 10/27/17 Time: 20:07 Rhythm: NSR Rate (Beats/Min): 80 [place]: Normal P-Wave: Present QRS: Normal ST-T: Normal QT: Normal Comparison: No Change (10/16/2017) Course - Vital Signs Last Recorded V/S: Last Vital Signs Temp 36.7 C 10/27/17 19:20 Pulse 90 10/27/17 19:20 Resp 18 10/27/17 19:20 BP 133/95 H 10/27/17 19:20 Pulse Ox 99 10/27/17 19:20 - Orders/Labs/Meds Orders: Active Orders 24 hr Category Date Time Status EKG Documentation Completion [RC] STAT Care 10/27/17 19:38 Active DRUG SCREEN, URINE [URCHEM] Stat Lab 10/27/17 20:30 Ordered HCG QUALITATIVE,URINE [URCHEM] Stat Lab 10/27/17 20:30 Ordered Labs: Laboratory Tests 10/27/17 10/27/17 10/27/17 Range/Units 19:47 19:47 19:47 WBC 11.94 H (3.98-10.04) K/mm3 RBC 4.35 (3.98-5.22) M/mm3 Hgb 12.7 (11.2-15.7) gm/L Hct 39.1 (34.1-44.9) % MCV 89.9 (79.4-94.8) fl MCH 29.2 (25.6-32.2) pg MCHC 32.5 (32.2-35.5) g/dl RDW Std Deviation 42.8 (36.4-46.3) fL Plt Count 299 (182-369) K/mm3 MPV 9.2 L (9.4-12.3) fl Neutrophils % (Manual) 69 H (40-60) % Band Neutrophils % 0 (0-10) % Lymphocytes % (Manual) 25 (20-40) % Atypical Lymphs % 0 % Monocytes % (Manual) 3 (2-10) % Eosinophils % (Manual) 2 (0.7-5.8) % Basophils % (Manual) 1 (0.1-1.2) Platelet Estimate Adequate Plt Morphology Comment Normal RBC Morph Comment Normal Sodium 139 (136-145) mEq/L Potassium 4.2 (3.5-5.1) mEq/L Chloride 105 (98-107) mEq/L Carbon Dioxide 25 (21-32) mEq/L Anion Gap 13.2 (5-15) BUN 13 (7-18) mg/dL Creatinine 0.8 (0.55-1.02) mg/dL Est Cr Clr Drug Dosing 90.41 mL/min Estimated GFR (MDRD) > 60 (>60) mL/min BUN/Creatinine Ratio 16.3 (14-18) Glucose 93 (74-106) mg/dL Calcium 9.1 (8.5-10.1) mg/dL Total Bilirubin 0.2 (0.2-1.0) mg/dL AST 13 L (15-37) U/L ALT 22 (14-59) U/L Alkaline Phosphatase 83 (46-116) U/L Total Protein 7.1 (6.4-8.2) g/dl Albumin 3.7 (3.4-5.0) g/dl Globulin 3.4 gm/dL Albumin/Globulin Ratio 1.1 (1-2) Urine HCG, Qual (NEGATIVE) Salicylates 3.8 (2.8-20) mg/dL Urine Opiates Screen (NEGATIVE) Ur Buprenorphine Scrn (NEGATIVE) Ur Oxycodone Screen (NEGATIVE) Urine Methadone Screen (NEGATIVE) Ur Propoxyphene Screen (NEGATIVE) Acetaminophen 0 L (10-30) ug/mL Ur Barbiturates Screen (NEGATIVE) Ur Tricyclics Screen (NEGATIVE) Ur Phencyclidine Scrn (NEGATIVE) Ur Amphetamine Screen (NEGATIVE) U Methamphetamines Scrn (NEGATIVE) U Benzodiazepines Scrn (NEGATIVE) U Cocaine Metab Screen (NEGATIVE) U Marijuana (THC) Screen (NEGATIVE) Ethyl Alcohol 0.00 (0.00) gm% 10/27/17 10/27/17 Range/Units 20:30 20:30 WBC (3.98-10.04) K/mm3 RBC (3.98-5.22) M/mm3 Hgb (11.2-15.7) gm/L Hct (34.1-44.9) % MCV (79.4-94.8) fl MCH (25.6-32.2) pg MCHC (32.2-35.5) g/dl RDW Std Deviation (36.4-46.3) fL Plt Count (182-369) K/mm3 MPV (9.4-12.3) fl Neutrophils % (Manual) (40-60) % Band Neutrophils % (0-10) % Lymphocytes % (Manual) (20-40) % Atypical Lymphs % % Monocytes % (Manual) (2-10) % Eosinophils % (Manual) (0.7-5.8) % Basophils % (Manual) (0.1-1.2) Platelet Estimate Plt Morphology Comment RBC Morph Comment Sodium (136-145) mEq/L Potassium (3.5-5.1) mEq/L Chloride (98-107) mEq/L Carbon Dioxide (21-32) mEq/L Anion Gap (5-15) BUN (7-18) mg/dL Creatinine (0.55-1.02) mg/dL Est Cr Clr Drug Dosing mL/min Estimated GFR (MDRD) (>60) mL/min BUN/Creatinine Ratio (14-18) Glucose (74-106) mg/dL Calcium (8.5-10.1) mg/dL Total Bilirubin (0.2-1.0) mg/dL AST (15-37) U/L ALT (14-59) U/L Alkaline Phosphatase (46-116) U/L Total Protein (6.4-8.2) g/dl Albumin (3.4-5.0) g/dl Globulin gm/dL Albumin/Globulin Ratio (1-2) Urine HCG, Qual Negative (NEGATIVE) Salicylates (2.8-20) mg/dL Urine Opiates Screen Negative (NEGATIVE) Ur Buprenorphine Scrn Negative (NEGATIVE) Ur Oxycodone Screen Negative (NEGATIVE) Urine Methadone Screen Negative (NEGATIVE) Ur Propoxyphene Screen Negative (NEGATIVE) Acetaminophen (10-30) ug/mL Ur Barbiturates Screen Negative (NEGATIVE) Ur Tricyclics Screen Negative (NEGATIVE) Ur Phencyclidine Scrn Negative (NEGATIVE) Ur Amphetamine Screen Negative (NEGATIVE) U Methamphetamines Scrn Negative (NEGATIVE) U Benzodiazepines Scrn Negative (NEGATIVE) U Cocaine Metab Screen Negative (NEGATIVE) U Marijuana (THC) Screen Negative (NEGATIVE) Ethyl Alcohol (0.00) gm% - Re-Assessments/Exams Free Text/Narrative Re-Assessment/Exam: 10/27/17 21:26 The patient's medical evaluation is entirely unremarkable. My medical opinion, the patient is fit for discharge to [facility]. Departure - Departure Time of Disposition: 21:26 Disposition: Home, Self-Care 01 Condition: Good Clinical Impression: Methamphetamine abuse - Discharge Information *PRESCRIPTION DRUG MONITORING PROGRAM REVIEWED*: Not Applicable *COPY OF PRESCRIPTION DRUG MONITORING REPORT IN PATIENT CHALO: Not Applicable Referrals: Aure Cochran NP [Primary Care Provider] - Forms: ED Department Discharge Additional Instructions: You were seen in the emergency room for "medical clearance" to go to [facility]. Workup in the ER included blood work, a urine drug screen, a urine test, and an ECG. Your entire workup was unremarkable. From a medical standpoint, you appear to be fit to go to [facility]. If any other problems, please do not hesitate to return to the ER. - My Orders Last 24 Hours: My Active Orders 10/27/17 19:38 EKG Documentation Completion [RC] STAT 10/27/17 20:30 DRUG SCREEN, URINE [URCHEM] Stat HCG QUALITATIVE,URINE [URCHEM] Stat - Assessment/Plan Last 24 Hours: My Active Orders 10/27/17 19:38 EKG Documentation Completion [RC] STAT 10/27/17 20:30 DRUG SCREEN, URINE [URCHEM] Stat HCG QUALITATIVE,URINE [URCHEM] Stat
[2017-10-27 20:19] LABS: ACETAMINOPHEN 0 ug/mL (10-30)
== END 2017-10-27 21:48 | disposition home or self-care (01) ==
LOC: JD.ED 19:16
DX: Z02.89 Encounter for other administrative examinations (principal); F15.10 Other stimulant abuse, uncomplicated; F41.9 Anxiety disorder, unspecified; F32.9 Major depressive disorder, single episode, unspecified; F17.210 Nicotine dependence, cigarettes, uncomplicated; Z91.013 Allergy to seafood; Z79.899 Other long term (current) drug therapy
CPT/HCPCS: 36415; 80053; 80306; 81025; 85007; 85027; 93005; 99283; G0480; 93010; 99284-25

== ENCOUNTER 2017-11-04 01:15 | Emergency (ER) | payer MEDICAID ==
[2017-11-04 01:25] VITALS: BP 130/86
[2017-11-04 02:25] LABS: ACETAMINOPHEN 0 ug/mL (10-30)
--- NOTE | 2017-11-04 06:44 | ER ---
REASON FOR EMERGENCY ROOM VISIT: Apparent suicidal gesture. HISTORY OF PRESENT ILLNESS: This 27-year-old woman was brought into the emergency department by paramedics after she had apparently made a suicidal gesture by creating some longitudinal superficial lacerations over her left wrist with a knife and had taken what is estimated to be approximately 50 tablets of nabumetone. She was recently hospitalized at the [facility] for methamphetamine abuse - she has a history of this in the past. She evidently just checked out from rehab tonight from this facility. She came home to some rather upsetting revelation, the details of which were not shared with me. However, one stressor included the fact that her children had been removed from her home on Thursday. There were other interpersonal issues that triggered this according to the police investigator, who accompanied her to the emergency department. Another issue is that she apparently has been under investigation for potential felony crime and the charges are pending at this time. Her records indicate that she has had a history of 1 prior suicide attempt at the age of 16. She was quoted at the scene as saying "my life is not worth living anymore." On questioning her, she states that at the time she made the gesture she intended on carrying through with the act, but now she recanted somewhat and states that it was not really a serious gesture. Her prior history of a suicide attempt at 16 by taking pills compels us to take this issue very seriously. She indeed has had a number of health issues that I am sure have contributed to this. Most noteworthy among these is a history of depression and anxiety and a diagnosis of multiple sclerosis which was made approximately 1-1/2 years ago. She also has a history hepatitis C which was treated a couple of years ago as well. She is under the care of a neurologist, Dr. Pino, for her multiple sclerosis. PAST MEDICAL HISTORY: Significant for: 1. History of substance abuse (methamphetamine). 2. Hepatitis C. 3. Multiple sclerosis. 4. Depression. 5. Anxiety. 6. Cholecystectomy. 7. Prior suicide attempt. CURRENT MEDICATIONS: See electronic medical record and these include Cymbalta and Klonopin. ALLERGIES: She is allergic to shellfish and trazodone. REVIEW OF SYSTEMS: Pertinent positives and negatives as listed in the HPI. PHYSICAL EXAMINATION: GENERAL: She appears to be reasonably well groomed and does not appear in any acute distress. In fact, her affect is somewhat flat at the time she was interviewed. HEENT: Head is normocephalic and atraumatic. Pupils; no conjunctivitis, no scleral icterus is noted. Oropharynx is normal. NECK: No adenopathy. No JVD. No thyromegaly. CHEST: Clear to auscultation. CARDIAC: Regular rate without murmur. ABDOMEN: Nondistended, soft, and nontender. No hepatosplenomegaly. No palpable masses. EXTREMITIES: She has no edema. Her feet are pink and warm. She has palpable foot pulses. At her left wrist, she has a number of parallel, very superficial abrasions that run longitudinally from varying distance, ranging from 3 to 5 cm. These do not break through the dermis and basically amount to superficial scratches. NEUROLOGIC: Her cranial nerves 2 through 12 are intact. Muscle strength, bulk, and tone are normal and symmetrical. Sensation is normal to crude touch. Station and gait were not tested. LABORATORY DATA: Her WBC is 12.03 times 10 to third. Her hemoglobin is 13.5. Her electrolytes are normal; however, she does have an elevated lactic acid at 2.6. Her liver enzymes are all normal. Her urinalysis does show 2+ leukocyte esterase, 30 to 40 wbc's per high-powered field and moderate bacteria. A urine drug screen was negative. A TSH is pending at this time. FURTHER EMERGENCY ROOM COURSE: We were in contact with the Poison Control Center at [facility] and informed them of the georgee over-ingestion. It had been between 1 and 1-1/2 hours since she ingested it by our estimation. Their feeling was that most likely this would only cause some GI upset, if anything. They recommended that we monitor lactate levels and repeat it at 4 to 6 hours to see if there is a trend. IMPRESSION: Suicidal gesture with history of methamphetamine abuse as described above. PLAN: At the time of this dictation, we are waiting for her repeat blood work. She will have to be hospitalized in my judgment because of this gesture, and we are currently in the process of investigating options as far as placement for that purpose. I think she should be placed on a 72-hour hold. I informed the patient of this. The patient will probably be handed off to another physician during the shift change. MMODAL /[id number]
== END 2017-11-04 07:25 ==
LOC: JD.ED 01:15
DX: T39.392A Poisoning by other nonsteroidal anti-inflammatory drugs [NSAID], intentional self-harm, initial encounter (principal); S60.812A Abrasion of left wrist, initial encounter; F32.9 Major depressive disorder, single episode, unspecified; F41.9 Anxiety disorder, unspecified; F17.210 Nicotine dependence, cigarettes, uncomplicated; X78.1XXA Intentional self-harm by knife, initial encounter; Z91.013 Allergy to seafood; Z88.8 Allergy status to other drugs, medicaments and biological substances
CPT/HCPCS: 36415; 80053; 80306; 81001; 82150; 83605; 84443; 85025; 93005; 99285; G0480

== ENCOUNTER 2018-03-18 23:22 | Emergency (ER) | payer MEDICAID ==
[2018-03-18 23:34] VITALS: BP 130/87
[2018-03-18] MEDS ORDERED: Sodium Chloride 0.9% 1,000 ML IV SCH (23:45)
[2018-03-18] MEDS ORDERED: HYDROmorphone 1 MG/ML Syringe IVPUSH ONE (23:46)
[2018-03-18] MEDS ORDERED: Ondansetron 4 MG/2 ML SDV IVPUSH ONE (23:46)
--- NOTE | 2018-03-18 23:50 | EDM.PDOC ---
ED HPI GENERAL MEDICAL PROBLEM - General Chief Complaint: Abdominal Pain Stated Complaint: PAIN ON RIGHT SIDE Time Seen by Provider: 03/18/18 23:45 Source of Information: Reports: Patient History Limitations: Reports: No Limitations - History of Present Illness INITIAL COMMENTS - FREE TEXT/NARRATIVE: 28-year-old female presents to the ED with sudden onset of right lower quadrant abdominal pain that started during sexual intercourse. This occurred about an hour ago. Pain currently is felt in the right mid abdomen and radiates up towards her right flank. Associated nausea initially but not now. She states her bowel function has been normal. She states she has had a tubal ligation and could not be . Onset: Today Onset Date: 03/18/18 Onset Time: 22:50 Duration: Minutes: Location: Reports: Abdomen Quality: Reports: Ache (Right lower quadrant of the abdomen rating up towards the right flank area.) Severity: Moderate Improves with: Reports: None Worsens with: Reports: Movement Context: Denies: Activity, Exercise, Lifting, Sick Contact, Trauma, Other Associated Symptoms: Reports: Nausea/Vomiting. 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: Other (see below) (Issue onset of nausea with the intensity of the pain but not now none.) Right Upper Abdomen Pain Score (Numeric/FACES): 5 - Related Data Allergies Allergy/AdvReac Type Severity Reaction Status Date / Time shellfish derived Allergy Airway Verified 03/18/18 23:31 Tightness trazodone Allergy Cannot Verified 03/18/18 23:31 Remember Home Meds: Home Meds DULoxetine [Cymbalta] 120 mg PO DAILY 10/16/17 [History] Amoxicillin 1 tab PO TID 03/18/18 [History] oxyCODONE HCl/Acetaminophen [Percocet 5-325 mg Tablet] 1 - 2 each PO Q4H PRN # 12 tablet 03/19/18 [Rx] Past Medical History HEENT History: Reports: Impaired Vision Other HEENT History: 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 Gastrointestinal History: Reports: Cholelithiasis KITCHEN HELPER History: Reports: , Other (See Below) Other KITCHEN HELPER History: tubal ligation Musculoskeletal History: Reports: Other (See Below) Other Musculoskeletal History: MS Neurological History: Reports: MS Psychiatric History: Reports: Addiction, Anxiety, Depression, Suicide Attempt, Suicidal Ideation - Infectious Disease History Infectious Disease History: Reports: Hepatitis C Other Infectious Disease History: pt has had the treatment for Hep c - Past Surgical History HEENT Surgical History: Reports: Tonsillectomy GI Surgical History: Reports: Cholecystectomy Female Surgical History: Reports: Tubal Ligation Social & Family History - Family History Family Medical History: Noncontributory - Tobacco Use Smoking Status *Q: Current Every Day Smoker Years of Tobacco use: 13 Packs/Tins Daily: 0.5 - Caffeine Use Caffeine Use: Reports: Coffee, Energy Drinks, Soda, Tea - Recreational Drug Use Recreational Drug Use: Yes Drug Use in Last 12 Months: Yes Recreational Drug Use Frequency: Not Used In Over 2 Months - Living Situation & Occupation Living situation: Reports: Single, with Significant Other (Fiance), with Family (2 kids) Occupation: Unemployed ED ROS GENERAL - Review of Systems Review Of Systems: See Below Constitutional: Denies: Fever, Chills, Malaise, Weakness, Fatigue, Weight Loss HEENT: Reports: No Symptoms Respiratory: Reports: Other (Deep breathing does make the abdominal pain somewhat worse.) Cardiovascular: Reports: No Symptoms Endocrine: Reports: No Symptoms GI/Abdominal: Reports: Abdominal Pain (See history of present illness), Nausea ( Initially but not now) : Reports: Other (Right-sided pelvic pain that started). Denies: Flank Pain, Frequency, Hematuria, Irregular Menses, Pain, Urgency, Urinary Retention Musculoskeletal: Reports: Back Pain Skin: Reports: No Symptoms (Mild low back pain on the right side) Neurological: Reports: No Symptoms Psychiatric: Reports: No Symptoms Hematologic/Lymphatic: Reports: No Symptoms Immunologic: Reports: No Symptoms ED EXAM, GI/ABD - Physical Exam Exam: See Below Exam Limited By: No Limitations General Appearance: Alert, WD/WN, No Apparent Distress Eyes: Bilateral: Normal Appearance (No jaundice.) Respiratory/Chest: No Respiratory Distress, Lungs Clear, Normal Breath Sounds, No Accessory Muscle Use Cardiovascular: Normal Peripheral Pulses, Regular Rate, Rhythm, No Edema, No Gallop, No Murmur GI/Abdominal Exam: Guarding (Numbness mid right abdomen and right lower quadrant deep in the pelvis with mild guarding.), Tender, Abnormal Bowel Sounds (Bowel sounds are slightly hyperactive throughout all 4 quadrants), Other ( Previous cholecystectomy and tubal ligation. I believe I can feel the right hemicolon right upper quadrant of the abdomen.). No: Rigid, Rebound ( Right lower quadrant right pelvis.) (Female) Exam: Other (Uterus is anteverted 4 weeks in size no pain on deviation of the uterus posteriorly or to the left. Mild increased pain on deviation of the uterus to the right.). No: Normal Bimanual Exam, Vaginal Bleeding ( Marked right adnexal tenderness on deep palpation.) Back Exam: Normal Inspection, Full Range of Motion, Paraspinal Tenderness. No: CVA Tenderness (L), CVA Tenderness (R) Extremities: Normal Inspection, Normal Range of Motion, Non-Tender, No Pedal Edema, Normal Capillary Refill Neurological: Oriented, CN II-XII Intact, Normal Cognition, Normal Gait Psychiatric: Anxious Skin Exam: Warm, Dry, Intact, Normal Color, No Rash Course - Vital Signs Last Recorded V/S: Last Vital Signs Temp 36.3 C 03/18/18 23:32 Pulse 78 03/18/18 23:32 Resp 18 03/18/18 23:32 BP 130/87 03/18/18 23:32 Pulse Ox 100 03/18/18 23:32 - Orders/Labs/Meds Orders: Active Orders 24 hr Category Date Time Status Abdomen 1V Flat [CR] Stat Exams 03/18/18 23:47 Taken Transvaginal Non OB [US] Stat Exams 03/19/18 00:16 Taken Labs: Laboratory Tests 03/18/18 Range/Units 23:55 Urine Color Yellow (Yellow) Urine Appearance Clear (Clear) Urine pH 6.0 (5.0-8.0) Ur Specific [place] 1.025 (1.005-1.030) Urine Protein Negative (Negative) Urine Glucose (UA) Negative (Negative) Urine Ketones Negative (Negative) Urine Occult Blood Negative (Negative) Urine Nitrite Negative (Negative) Urine Bilirubin Negative (Negative) Urine Urobilinogen 0.2 (0.2-1.0) Ur Leukocyte Esterase Negative (Negative) Urine RBC 0-5 (0-5) /hpf Urine WBC 0-5 (0-5) /hpf Ur Epithelial Cells Not Reportable Ur Squamous Epith Cells 0-5 (0-5) /hpf Urine Bacteria Few (FEW) /hpf Urine Mucus Moderate H (FEW) /hpf Meds: Medications Discontinued Medications Generic Name Dose Route Start Last Admin Trade Name Vikas PRN Reason Stop Dose Admin Hydromorphone HCl 0.5 mg 03/18/18 23:46 03/18/18 23:59 Dilaudid IVPUSH 03/18/18 23:47 0.5 mg ONETIME ONE Administration Hydromorphone HCl 0.5 mg 03/19/18 01:55 03/19/18 02:01 Dilaudid IVPUSH 03/19/18 01:56 0.5 mg ONETIME ONE Administration Sodium Chloride 1,000 mls @ 150 mls/hr 03/18/18 23:45 03/18/18 23:57 Normal Saline IV 150 mls/hr ASDIRECTED NANCY Administration Ketorolac Tromethamine 30 mg 03/19/18 02:00 03/19/18 02:03 Toradol IVPUSH 30 mg ONETIME NANCY Administration Metoclopramide HCl 7.5 mg 03/19/18 02:05 03/19/18 02:10 Reglan IVPUSH 03/19/18 02:06 7.5 mg ONETIME ONE Administration Ondansetron HCl 4 mg 03/18/18 23:46 03/18/18 23:58 Zofran IVPUSH 03/18/18 23:47 4 mg ONETIME ONE Administration - Radiology Interpretation Free Text/Narrative:: 28-year-old female presents to the ED with acute onset of severe right lower quadrant and right pelvic pain that occurred during sexual intercourse. Pain persisted and radiates now up towards her right flank over the last hour. She states she has to walk hunched over cannot walk fully erect. Denies any dysuria urgency or frequency. She just finished her last normal menstrual period . Has had previous tubal ligation. Has had previous cholecystectomy. Examination reveals bowel sounds quite active in all 4 quadrants of the abdomen. I can palpate the upper right hemicolon. She is tender to palpation particularly in the deep right pelvis. Concern on pelvic examination was for right adnexal tenderness on bimanual exam. Query ruptured ovarian cyst. Plan transvaginal ultrasound to be done - Re-Assessments/Exams Free Text/Narrative Re-Assessment/Exam: 03/19/18 01:34: KUB reveals increased stool throughout most of the colon. There is no bowel obstruction. Lab tests revealed a normal urinalysis and negative hCG. A trans vaginal ultrasound reveals a small amount of fluid in the cul-de- sac. This may be physiologic. Both ovaries have several small cysts but do not appear to be abnormal in any other fashion. No blood flow within both ovaries and adnexa. No evidence of ovarian torsion. Working diagnosis small ruptured ovarian cyst to caused her pain. Will repeat Dilaudid 0.5 mg IV with Reglan 7.5 mg IV and give her Toradol 30 mg IV now for pain relief. She will then be discharged to home on Motrin 600 mg every 6 hours or Aleve 2 tablets every 8 hours for pain relief. Percocet 5/325 mg one tablet every 4-6 hours 10 were provided for pain relief. Departure - Departure Time of Disposition: 01:48 Disposition: Home, Self-Care 01 Condition: Fair Clinical Impression: Ruptured ovarian cyst - Discharge Information *PRESCRIPTION DRUG MONITORING PROGRAM REVIEWED*: Not Applicable *COPY OF PRESCRIPTION DRUG MONITORING REPORT IN PATIENT CHALO: Not Applicable Prescriptions: oxyCODONE HCl/Acetaminophen [Percocet 5-325 mg Tablet] 1 - 2 each PO Q4H PRN # 12 tablet PRN Reason: pain relief. Instructions: Ovarian Cyst, [id number] Referrals: Kavita Phillip MD [Primary Care Provider] - Forms: ED Department Discharge Additional Instructions: Evaluation the emergency room tonight in regards to sudden onset of right lower quadrant abdominal pain rating up along the right side of your abdomen that started during sexual intercourse. Examination revealed marked tenderness in the right adnexa which is where your ovary isn't down in your pelvis. An ultrasound has been performed and it does reveal that there was a small cyst on the ovary that has ruptured releasing a little bit of irritating fluid into the pelvis and irritating the lining of your lower abdomen. The x-ray of the abdomen shows that there is some increased stool throughout the colon as well. Urinalysis was normal. No sign of kidney stone. Treatment in the ED was pain relief with Dilaudid and Zofran. Treatment as an outpatient is to continue either Aleve 2 tablets every 8 hours or Motrin 600 mg every 6 hours to relieve inflammation and pain and Percocet tablet 5/325 mg tablet 1 every 4-6 hours as needed for pain relief for the next 2-3 days. Usually the pain last 3 or 4 days and feels like he got punched in the lower abdomen. No further treatment is usually required. I would suggest purchasing some MiraLAX powder and taking 17 g 1 packet daily while you're on the pain medication as they slow the bowel down further and you are already showing some degree of constipation. Suggest use once daily for the next week or so. - My Orders Last 24 Hours: My Active Orders 03/18/18 23:47 Abdomen 1V Flat [CR] Stat 03/19/18 00:16 Transvaginal Non OB [US] Stat - Assessment/Plan Last 24 Hours: My Active Orders 03/18/18 23:47 Abdomen 1V Flat [CR] Stat 03/19/18 00:16 Transvaginal Non OB [US] Stat
[2018-03-19] MEDS ORDERED: HYDROmorphone 1 MG/ML Syringe IVPUSH ONE (01:55)
[2018-03-19] MEDS ORDERED: Ketorolac 30 MG/ML SDV IVPUSH SCH (02:00)
[2018-03-19] MEDS ORDERED: Metoclopramide 10 MG/2 ML SDV IVPUSH ONE (02:05)
--- NOTE | 2018-03-19 06:52 | US ---
Pelvic ultrasound: Multiple real-time images were obtained transvaginally. Comparison: Prior CT abdomen and pelvis exam of 09/06/17. Uterus is anteverted. Incidental nabothian cysts are seen. Endometrial thickness is normal at 4 mm. No myometrial abnormality is seen. Follicles are seen within both ovaries. No larger cyst or solid abnormality is seen within the ovaries or adnexa. Minimal physiologic fluid seen within the cul-de-sac. Measurements: Uterus: Length 7.2 cm, AP height 4.0 cm, transverse width 5.4 cm Right ovary: 3.3 x 1.6 x 1.9 cm Left ovary: 3.3 x 1.6 x 1.5 cm Impression: 1. Incidental findings. Nothing acute is seen on pelvic ultrasound study. Diagnostic code #1 I agree with preliminary report from [facility], finalized on 03/19/18, 3:21 AM Central Time
--- NOTE | 2018-03-19 07:01 | CR ---
Abdomen: Supine view of the abdomen was obtained. Comparison: Prior abdominal x-ray of 09/06/17. Bowel gas pattern is unremarkable. Surgical clips are seen from prior cholecystectomy. Bony structures are unremarkable. No soft tissue abnormality is seen. Impression: 1. Unremarkable supine abdominal x-ray. Diagnostic code #2
== END 2018-03-19 02:22 | disposition home or self-care (01) ==
LOC: JD.ED 23:22
DX: N83.202 Unspecified ovarian cyst, left side (principal); N83.201 Unspecified ovarian cyst, right side; F17.210 Nicotine dependence, cigarettes, uncomplicated; Z88.5 Allergy status to narcotic agent; Z79.899 Other long term (current) drug therapy
CPT/HCPCS: 74018; 76830; 81001; 96361; 96374; 96375; 96376; 99285; J1170; J1885; J2405; J2765; J7040; 99284